=== PATIENT | female | born 1965 | race Caucasian/White ===

== ENCOUNTER 2018-12-18 19:21 | Emergency (ER) | payer BC ==
--- NOTE | 2018-12-18 21:31 | EDM.PDOC ---
ED HPI GENERAL MEDICAL PROBLEM - General Chief Complaint: Laceration Stated Complaint: LACERATION ON LEFT INDEX FINGER Time Seen by Provider: 12/18/18 20:52 Source of Information: Reports: Patient History Limitations: Reports: No Limitations - History of Present Illness INITIAL COMMENTS - FREE TEXT/NARRATIVE: This lady was using a rotary furniture fabricator for quilting when her left index finger sort of got in the way. This happened just prior to arrival. She said it wouldn't stop bleeding. Last tetanus unknown. Records show it was in 2012. Treatments ANESTHESIA TECHNICIAN: Reports: Dressing(s) Left Hand Pain Score (Numeric/FACES): 6 - Related Data Allergies Allergy/AdvReac Type Severity Reaction Status Date / Time erythromycin base Allergy Rash Verified 12/18/18 20:03 [From Erythrocin] Home Meds: Home Meds Ascorbate Calcium [Vitamin C] 500 mg PO DAILY 12/18/18 [History] Calcium Carbonate [Calcium] 600 mg PO DAILY 12/18/18 [History] Cetirizine [ZyrTEC] 10 mg PO DAILY 12/18/18 [History] Lisinopril/Hydrochlorothiazide [Lisinopril-Hctz 10-12.5 mg Tab] 1 each PO DAILY 12/18/18 [History] Past Medical History HEENT History: Reports: Cataract Cardiovascular History: Reports: Hypertension [employer]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: Musculoskeletal History: Reports: Osteoarthritis - Infectious Disease History Infectious Disease History: Reports: Chicken Pox - Past Surgical History HEENT Surgical History: Reports: Adenoidectomy, Cataract Surgery, Myringotomy w Tube(s), Tonsillectomy Female Surgical History: Reports: Hysterectomy Social & Family History - Tobacco Use Smoking Status *Q: Never Smoker Second Hand Smoke Exposure: No - Caffeine Use Caffeine Use: Reports: Soda - Recreational Drug Use Recreational Drug Use: No ED ROS GENERAL - Review of Systems Review Of Systems: ROS reveals no pertinent complaints other than HPI. ED EXAM, SKIN/RASH Exam: See Below Exam Limited By: No Limitations General Appearance: Alert, WD/WN, Mild Distress Extremities: Other (There is a laceration diagonal across the dorsum of the distal phalanx of the left index finger. Laceration begins on the thumb side and doubt the level of the DIP joint that extends sort of diagonally across the lateral or thumb side of the nail and then a little bit onto the fingertip. This leaves just a small triangle of nail which is partially severed. It's a full-thickness laceration. Neurovascular tendon all intact.) Course - Vital Signs Last Recorded V/S: Last Vital Signs Temp 35.9 C 12/18/18 20:01 Pulse 87 12/18/18 20:01 Resp 12 12/18/18 20:01 BP 163/93 H 12/18/18 20:01 Pulse Ox 98 12/18/18 20:01 - Orders/Labs/Meds Meds: Medications Discontinued Medications Generic Name Dose Route Start Last Admin Trade Name Sulema PRN Reason Stop Dose Admin Lidocaine HCl 5 ml 12/18/18 20:52 12/18/18 21:01 Xylocaine-Mpf 1% INJECT 12/18/18 20:53 5 ml ONETIME ONE Administration - Re-Assessments/Exams Free Text/Narrative Re-Assessment/Exam: 12/18/18 21:29 Procedure: Laceration repair this laceration totals about 3.0 cm. The wound was anesthetized with a total of about 2 mL of 1% plain lidocaine injected locally with a 27-gauge needle. It was then scrubbed with some Hibiclens and then lavaged copiously with normal saline. Wound was then closed with a running 5-0 nylon stitch. The distal half of the small triangular of nail was loosened and that was clipped off. 3 of the stitches were anchored in the remaining nail. Overall he gave a good cosmetic result. Bacitracin and sterile dressing were applied Departure - Departure Time of Disposition: 21:30 Disposition: Home, Self-Care 01 Condition: Fair Clinical Impression: Laceration of left index finger - Discharge Information Referrals: PCP,None [Primary Care Provider] - Additional Instructions: Remove the dressing on Friday. Wash with soap and water apply a small amount of antibiotic ointment and keep covered with a dressing. Repeat the cleansing procedure daily. Watch for signs of infection. See your doctor in 10 days for suture removal.
[2018-12-18] MEDS ORDERED: Bacitracin Oint 1 GM U/D Packet TOP ONE (21:36)
== END 2018-12-18 21:52 | disposition home or self-care (01) ==
LOC: JP.ED 19:21
DX: S61.211A Laceration without foreign body of left index finger without damage to nail, initial encounter (principal); Z88.1 Allergy status to other antibiotic agents; Z79.899 Other long term (current) drug therapy; I10 Essential (primary) hypertension; W45.8XXA Other foreign body or object entering through skin, initial encounter
CPT/HCPCS: 12002; 99282; J2001